=== PATIENT | male | born 1995 | race Caucasian/White ===

== ENCOUNTER 2017-04-09 17:24 | Emergency (ER) | payer MEDICAID ==
[2017-04-09] MEDS ORDERED: Sodium Chloride 0.9% 1,000 ML IV ONE (17:58)
--- NOTE | 2017-04-09 18:04 | ED Physician Chart ---
Chief Complaint/HPI - Patient Information Date Seen:: 04/09/17 Time Seen:: 18:00 Chief Complaint:: abd p History of Present Illness:: pt w theron pa since this am. pain is all over abd and crampy and moderate intensity. has vomited 5 times of bile. has had diarrhea today as well..nonbloody. however he feels he is constipated. last ate last nt. felt warm earlier but no def fever. no meds tried today. no known sick contacts. Allergies:: Allergies Allergy/AdvReac Type Severity Reaction Status Date / Time No Known Allergies Allergy Verified 04/09/17 17:39 Vitals:: Vital Signs - 8 hr 04/09/17 17:39 Temp 98.9 F HR 90 RR 20 BP 108/68 O2 Sat % 97 Historian:: Patient Review of Systems - Review of Systems General/Constitutional: No fever, No chills, No weight loss, No weakness, No diaphoresis, No edema, No loss of appetite Skin: No skin lesions, No rash, No bruising Head: No headache, No light-headedness Eyes: No loss of vision, No pain, No diplopia ENT: No earache, No nasal drainage, No sore throat, No tinnitus Neck: No neck pain, No swelling, No thyromegaly, No stiffness, No mass noted Cardio Vascular: No chest pain, No palpitations, No PND, No orthopnea, No edema Pulmonary: No SOB, No cough, No sputum, No wheezing GI: No nausea, No vomiting, No diarrhea, No pain, No melena, No hematochezia, No constipation, No hematemesis G/U: No dysuria, No frequency, No hematuria Musculoskeletal: No bone or joint pain, No back pain, No muscle pain Endocrine: No polyuria, No polydipsia Psychiatric: No prior psych history, No depression, No anxiety, No suicidal ideation Hematopoietic: No bruising, No lymphadenopathy Allergic/Immuno: No urticaria, No angioedema Neurological: No syncope, No focal symptoms, No weakness, No paresthesia, No headache, No seizure, No dizziness, No confusion, No vertigo Past Medical History - Past Medical History Past Medical History: No significant medical hx Social History: Lives With Parents Medication: None Family Medical History - Family Member Sister History Unknown: Yes Physical Exam - Physical Examination General/Constitutional: Awake, Well-developed, well-nourished, Alert, No distress, GCS 15, Non-toxic appearing, Ambulatory Other Gen/Cons comments:: thin alert male in nad. abd is vague tndr all over w pos nabs. Head: Atraumatic Eyes: Lids, conjuctiva normal, PERRL, EOMI Skin: Nl inspection, No rash, No skin lesions, No ecchymosis, Well hydrated, No lymphadenopathy ENMT: External ears, nose nl, Nasal exam nl, Lips, teeth, gums nl Neck: Nontender, Full ROM w/o pain, No JVD, No nuchal rigidity, No bruit, No mass, No stridor Respiratory: Nl effort/Exclusion, Clear to Auscultation, No Wheeze/Rhonchi/Rales Cardio Vascular: RRR, No murmur, gallop, rubs, NL S1 S2 GI: No organomegaly, No hernia, Normal BS's, Nondistended, No mass/bruits, No McBurney tenderness : No CVA tenderness Extremities: No tenderness or effusion, Full ROM, normal strength in all extremities, No edema, Normal digits & nails Neuro/Psych: Alert/oriented, DTR's symmetric, Normal sensory exam, Normal motor strength, Judgement/insight normal, Mood normal, Normal gait, No focal deficits Misc: normal gait, Normal back, No paraspinal tenderness Labs/Radiology/EKG Results - Lab Results Results: Laboratory Tests 04/09/17 04/09/17 04/09/17 17:15 18:08 18:08 WBC 14.1 H RBC 5.06 Hgb 15.8 Hct 46.7 MCV 92.4 MCH 31.1 H MCHC Differential 33.7 RDW 12.5 Plt Count 278 MPV 6.9 Sodium 134 L Potassium 3.6 Chloride 104 Carbon Dioxide 19.2 L Anion Gap 14.4 BUN 22 Creatinine 1.0 Est GFR ( Amer) > 60.0 Est GFR (Non-Af Amer) > 60.0 BUN/Creatinine Ratio 22.0 Glucose 159 H Whole Bld Lactic Acid Calcium 10.2 Total Bilirubin 1.0 AST 18 ALT 15 Alkaline Phosphatase 49 Total Protein 7.7 Albumin 5.1 Globulin 2.6 Albumin/Globulin Ratio 2.0 H Lipase 11 Urine Source CLEAN C Urine Color YELLOW Urine Clarity CLEAR Urine pH 8.5 Ur Specific [place] 1.015 Urine Protein 30 H Urine Glucose (UA) NEGATIVE Urine Ketones NEGATIVE Urine Blood NEGATIVE Urine Nitrate NEGATIVE Urine Bilirubin NEGATIVE Urine Urobilinogen 0.2 Ur Leukocyte Esterase NEGATIVE Urine RBC NONE SEEN Urine WBC NONE SEEN Ur Epithelial Cells NONE SEEN Urine Bacteria NONE SEEN 04/09/17 18:08 WBC RBC Hgb Hct MCV MCH MCHC Differential RDW Plt Count MPV Sodium Potassium Chloride Carbon Dioxide Anion Gap BUN Creatinine Est GFR ( Amer) Est GFR (Non-Af Amer) BUN/Creatinine Ratio Glucose Whole Bld Lactic Acid 2.97 H* Calcium Total Bilirubin AST ALT Alkaline Phosphatase Total Protein Albumin Globulin Albumin/Globulin Ratio Lipase Urine Source Urine Color Urine Clarity Urine pH Ur Specific [place] Urine Protein Urine Glucose (UA) Urine Ketones Urine Blood Urine Nitrate Urine Bilirubin Urine Urobilinogen Ur Leukocyte Esterase Urine RBC Urine WBC Ur Epithelial Cells Urine Bacteria - Radiology Results Results: ct abd/p nad/ no inflamation ED Septic Shock - . Is Septic Shock (SBP<90, OR Lactate>4 mmol\L) present?: No - <6hrs of presentation: Vital Signs: Vital Signs - 8 hr 04/09/17 17:39 Temp 98.9 F HR 90 RR 20 BP 108/68 O2 Sat % 97 Reassessment (Disposition) - Reassessment Reassessment:: re-exam at 7;30pm. pt has no nause nor abd pain now. abd exam benign. pos nabs. results reviewed w family. advise fu w pmd tmrw for rechk. or ret if worse. rx zofran. tylenol ok prn Reassessment Condition:: Improved - Diagnosis Diagnosis:: abdominal pain resolved viral gastroenteritis - Aftercare/Follow up Instructions Aftercare/Follow-Up Instructions:: Counseled pt & family regarding lab results/ diagnosis & need follow up - Patient Disposition Discharge/Transfer:: Home Condition at Disposition:: Improved
[2017-04-09 18:15] LABS: HEMATOCRIT 46.7 % (39.0-49.0); HEMOGLOBIN 15.8 gm/dL (13.2-17.3); MEAN CELL VOLUME 92.4 fl (80-99); MEAN CORPUSCULAR HEMOGLOBIN 31.1 pg (26.0-30.0); MEAN CORPUSCULAR HGB CONC 33.7 pg (28.0-36.0); MEAN PLATELET VOLUME 6.9 fl; PLATELET COUNT 278 Th/cmm (150-400); RED BLOOD COUNT 5.06 Mil/cmm (4.30-5.70); RED CELL DISTRIBUTION WIDTH 12.5 % (11.5-20.0)
[2017-04-09 18:31] LABS: WHITE BLOOD COUNT 14.1 Th/cmm (4.8-10.8)
[2017-04-09 18:33] LABS: ALKALINE PHOSPHATASE 49 U/L (34-104); ANION GAP 14.4 (7.0-16.0); BUN - UREA NITROGEN 22 mg/dL (7-25); CALCIUM SERUM 10.2 mg/dL (8.6-10.3); CARBON DIOXIDE 19.2 mEq/L (21.0-31.0); CHLORIDE 104 mEq/L (98-107); GLUCOSE 159 mg/dL (70-105); LIPASE 11 U/L (11-82); POTASSIUM SERUM 3.6 mEq/L (3.5-5.1); SGOT 18 U/L (13-39); SGPT/ALT 15 U/L (7-52); SODIUM SERUM 134 mEq/L (136-145)
[2017-04-09 19:03] LABS: URINE BILIRUBIN NEGATIVE (NEGATIVE); URINE BLOOD NEGATIVE (NEGATIVE); URINE GLUCOSE (UA) NEGATIVE (NEGATIVE); URINE KETONE NEGATIVE (NEGATIVE); URINE PH 8.5 (4.6 - 8.0); URINE PROTEIN 30 mg/dL (NEGATIVE); URINE UROBILINOGEN 0.2 E.U./dL (0.2 - 1.0)
[2017-04-09 19:05] LABS: URINE COLOR YELLOW
[2017-04-09 19:06] LABS: URINE BACTERIA NONE SEEN /hpf (NONE SEEN); URINE EPITHELIAL CELLS NONE SEEN /lpf (FEW); URINE RBC NONE SEEN /hpf (0-5); URINE WBC NONE SEEN /hpf (0-5)
[2017-04-09 21:23] LABS: BAND NEUTROPHILE 14 % (0-10); BASOPHIL 0 % (0-3); EOSINOPHIL 0 % (0-5); NEUTROPHILS 80 % (40-80); PLATELET ESTIMATE ADEQUATE (NORMAL); PLATELET MORPHOLOGY NORMAL (NORMAL); TOTAL CELLS COUNTED 100
--- NOTE | 2017-04-10 07:51 | Diagnostic Imaging Report ---
CT scan of the abdomen and pelvis without intravenous contrast History: Pain Total DLP equals 274 CTDI equals 5.6 Axial sections were obtained from the xiphoid process down to the pubic symphysis. Exam is limited due to the absence of oral/bowel contrast and a limited amount of intra-abdominal fat. The liver demonstrates a normal size and contour. No focal lesions are seen. The spleen appears normal. No abnormalities are seen in the region of the pancreas. The kidneys appear normal bilaterally. The exam of the pelvis demonstrates preservation of normal fat planes. No abnormal soft tissue masses. No abnormal fluid collections. Impression: 1. Limited exam due to the absence of oral/bowel contrast and a limited amount of intra-abdominal fat. 2. No definite acute abnormalities
== END 2017-04-09 20:20 | disposition home or self-care (01) ==
LOC: ER 17:24
DX: A08.4 Viral intestinal infection, unspecified (principal)
CPT/HCPCS: 99285; 96374; 74176; 36415; 83605; 85007; 85027; 81001; 83690; 80053; 87040; J2405; J7030